=== PATIENT | male | born 1935 | race Caucasian/White ===

== ENCOUNTER 2018-08-18 19:57 | Inpatient (IN) ==
[2018-08-18] MEDS ORDERED: ACETAMINOPHEN 325 MG TABLET PO PRN (23:20)
[2018-08-18] MEDS ORDERED: ONDANSETRON 4 MG/2 ML VIAL IV PRN (23:20)
[2018-08-18] MEDS ORDERED: LEVOFLOXACIN INJ 750 MG in PREMIX 1 EACH IV SCH (23:30)
[2018-08-19] MEDS: ALBUTEROL/IPRATROPIUM 3 ML NEB RESP TX SCH ×5 (00:43→23:36)
[2018-08-19] MEDS: PIPERACILLIN/TAZOBACTAM 3,375 MG in SODIUM CHLORIDE 0.9% 100 ML IV SCH ×3 (00:50→16:05)
[2018-08-19] MEDS: SOTALOL 80 MG TABLET PO SCH ×3 (01:03→22:50)
[2018-08-19 04:25] LABS: Basophils # 0.1 10*3/uL (0.0-0.2); Basophils % 0.5 % (0.0-0.8); Eosinophils # 0.1 10*3/uL (0.0-0.87); Eosinophils % 0.5 % (0.00-10.9); Hematocrit 32.3 VOL% (42.0-52.0); Hemoglobin 9.6 GM/DL (14.0-18.0); Immature Granulocytes % 3.9 %; Immature Granulocytes Absolute 0.43 #; Lymphocytes # 2.3 10*3/uL (1.4-4.0); Lymphocytes % 20.6 % (21.2-54.2); Mean Corpuscular HGB Conc 29.7 GM/DL (32-36); Mean Corpuscular Hemoglobin 28 PG (27-34); Mean Corpuscular Volume 92.6 FL (87-102); Mean Platelet Volume 11.2 FL (9.6-12.0); Monocytes % 9.1 % (1.7-12.7); Neutrophils # 7.2 10*3/uL (1.4-7.4); Neutrophils % 65.4 % (38.7-73.9); Platelet Count 151 T/CUMM (130-400); Red Blood Count 3.49 MC/CUMM (3.8-5.5); Red Cell Distribution Width 15.1 % (9.3-17.3)
[2018-08-19 05:07] LABS: Calcium 8.5 MG/DL (8.5-10.1); Potassium 4.3 MMOL/L (3.5-5.1)
[2018-08-19] MEDS: BUDESONIDE 0.5 MG/2 ML NEB RESP TX SCH ×2 (06:53→19:01)
[2018-08-19] MEDS ORDERED: Fluticasone/Vilanterol [Breo Ellipta 100-25 Mcg Inh] INH SCH (09:00)
[2018-08-19] MEDS ORDERED: PREGABALIN 50 MG CAPSULE PO SCH (09:00)
[2018-08-19] MEDS: PANTOPRAZOLE 40 MG TABLET PO SCH (09:33)
[2018-08-19] MEDS: POTASSIUM CHLORIDE 20 MEQ TABLET PO SCH (09:33)
[2018-08-19] MEDS: PREGABALIN 100 MG CAPSULE PO SCH ×3 (09:36→22:50)
[2018-08-19] MEDS: LORazepam 0.5 MG TABLET PO SCH ×2 (09:36→22:50)
[2018-08-19] MEDS: DUTASTERIDE 0.5 MG CAPSULE PO SCH (09:36)
[2018-08-19] MEDS: FUROSEMIDE 40 MG TABLET PO SCH (09:36)
[2018-08-19] MEDS: NITROFURANTOIN MACRO/MONO 100 MG CAPSULE PO SCH ×2 (09:37→22:50)
[2018-08-19 15:57] LABS: Hematocrit 32.7 VOL% (42.0-52.0); Hemoglobin 9.8 GM/DL (14.0-18.0)
[2018-08-19] MEDS ORDERED: FUROSEMIDE 40 MG/4 ML VIAL IV ONE (22:06)
[2018-08-19] MEDS ORDERED: ALBUTEROL 2.5 MG/3 ML NEB RESP TX PRN (22:13)
[2018-08-19 22:28] LABS: Allen Test Positive
[2018-08-19 22:29] LABS: ABG Base Excess 8.9 MMOL/L (-2.5-2.5); ABG HCO3 32.7 MMOL/L (20-26); ABG Oxygen Saturation 98.2 % (95-100); ABG PCO2 50.7 MM HG (35-48); ABG PH 7.441 (7.35-7.45); ABG TCO2 31.2 MMOL/L (23-27)
[2018-08-19] MEDS: traZODone 50 MG TABLET PO SCH (22:50)
[2018-08-20] MEDS: ALBUTEROL/IPRATROPIUM 3 ML NEB RESP TX SCH ×6 (02:00→22:56)
[2018-08-20 05:38] LABS: Hematocrit 31.6 VOL% (42.0-52.0); Hemoglobin 9.6 GM/DL (14.0-18.0)
[2018-08-20] MEDS: BUDESONIDE 0.5 MG/2 ML NEB RESP TX SCH ×2 (07:27→18:59)
[2018-08-20] MEDS: POTASSIUM CHLORIDE 20 MEQ TABLET PO SCH (09:03)
[2018-08-20] MEDS: PREGABALIN 100 MG CAPSULE PO SCH ×3 (09:03→22:04)
[2018-08-20] MEDS: FUROSEMIDE 40 MG TABLET PO SCH (09:03)
[2018-08-20] MEDS: DUTASTERIDE 0.5 MG CAPSULE PO SCH (09:03)
[2018-08-20] MEDS: SOTALOL 80 MG TABLET PO SCH ×2 (09:03→22:02)
[2018-08-20] MEDS: PANTOPRAZOLE 40 MG TABLET PO SCH (09:03)
[2018-08-20] MEDS: NITROFURANTOIN MACRO/MONO 100 MG CAPSULE PO SCH ×2 (09:05→22:04)
[2018-08-20] MEDS: LORazepam 0.5 MG TABLET PO SCH ×2 (09:06→22:01)
[2018-08-20] MEDS: RIVAROXABAN 10 MG TABLET PO SCH (09:12)
[2018-08-20] MEDS: traZODone 50 MG TABLET PO SCH (22:04)
[2018-08-21] MEDS: ALBUTEROL/IPRATROPIUM 3 ML NEB RESP TX SCH ×7 (02:43→23:24)
[2018-08-21 05:41] LABS: Basophils % 0.3 % (0.0-0.8); Eosinophils # 0.1 10*3/uL (0.0-0.87); Eosinophils % 1.6 % (0.00-10.9); Hematocrit 27.5 VOL% (42.0-52.0); Hemoglobin 8.6 GM/DL (14.0-18.0); Immature Granulocytes % 3.6 %; Immature Granulocytes Absolute 0.32 #; Lymphocytes # 1.5 10*3/uL (1.4-4.0); Lymphocytes % 16.6 % (21.2-54.2); Mean Corpuscular HGB Conc 31.3 GM/DL (32-36); Mean Corpuscular Hemoglobin 29 PG (27-34); Mean Corpuscular Volume 91.1 FL (87-102); Monocytes % 10.8 % (1.7-12.7); NRBC # 0.02 10*3/uL; Neutrophils % 67.1 % (38.7-73.9); Platelet Count 139 T/CUMM (130-400); Red Blood Count 3.02 MC/CUMM (3.8-5.5); Red Cell Distribution Width 15.3 % (9.3-17.3); White Blood Count 8.9 T/CUMM (4-12)
[2018-08-21 05:47] LABS: Calcium 8.4 MG/DL (8.5-10.1); Osmolality,Calculated 284.5 MOS/KG (273-304); Potassium 3.8 MMOL/L (3.5-5.1)
[2018-08-21 06:06] LABS: Hypochromasia 2+
[2018-08-21 06:07] LABS: Ovalocytes Slight; Platelet Estimate Normal
[2018-08-21] MEDS: BUDESONIDE 0.5 MG/2 ML NEB RESP TX SCH ×2 (06:50→21:07)
[2018-08-21] MEDS: LORazepam 0.5 MG TABLET PO SCH ×2 (09:21→20:44)
[2018-08-21] MEDS: POTASSIUM CHLORIDE 20 MEQ TABLET PO SCH (09:22)
[2018-08-21] MEDS: FUROSEMIDE 40 MG TABLET PO SCH (09:23)
[2018-08-21] MEDS: RIVAROXABAN 10 MG TABLET PO SCH (09:23)
[2018-08-21] MEDS: PREGABALIN 100 MG CAPSULE PO SCH ×3 (09:24→20:44)
[2018-08-21] MEDS: PANTOPRAZOLE 40 MG TABLET PO SCH (09:24)
[2018-08-21] MEDS: NITROFURANTOIN MACRO/MONO 100 MG CAPSULE PO SCH ×2 (09:24→20:48)
[2018-08-21] MEDS: SOTALOL 80 MG TABLET PO SCH ×2 (09:24→20:44)
[2018-08-21] MEDS: DUTASTERIDE 0.5 MG CAPSULE PO SCH (09:24)
[2018-08-21] MEDS: PIPERACILLIN/TAZOBACTAM 3,375 MG in SODIUM CHLORIDE 0.9% 100 ML IV SCH ×2 (14:57→21:30)
[2018-08-21] MEDS: traZODone 50 MG TABLET PO SCH (20:44)
[2018-08-22] MEDS: ALBUTEROL/IPRATROPIUM 3 ML NEB RESP TX SCH ×3 (03:15→10:54)
[2018-08-22 04:55] LABS: Basophils % 0.3 % (0.0-0.8); Eosinophils # 0.1 10*3/uL (0.0-0.87); Eosinophils % 1.6 % (0.00-10.9); Hematocrit 28.2 VOL% (42.0-52.0); Hemoglobin 8.6 GM/DL (14.0-18.0); Immature Granulocytes Absolute 0.28 #; Lymphocytes # 1.5 10*3/uL (1.4-4.0); Mean Corpuscular HGB Conc 30.5 GM/DL (32-36); Mean Corpuscular Hemoglobin 28 PG (27-34); Mean Corpuscular Volume 93.1 FL (87-102); Mean Platelet Volume 11.4 FL (9.6-12.0); Monocytes # 0.9 10*3/uL (0.11-0.8); Monocytes % 12.4 % (1.7-12.7); Neutrophils # 4.2 10*3/uL (1.4-7.4); Neutrophils % 60.7 % (38.7-73.9); Platelet Count 148 T/CUMM (130-400); Red Blood Count 3.03 MC/CUMM (3.8-5.5); Red Cell Distribution Width 15.2 % (9.3-17.3); White Blood Count 6.9 T/CUMM (4-12)
[2018-08-22 04:56] LABS: Calcium 8.3 MG/DL (8.5-10.1); Osmolality,Calculated 288.3 MOS/KG (273-304); Potassium 3.7 MMOL/L (3.5-5.1)
[2018-08-22] MEDS: PIPERACILLIN/TAZOBACTAM 3,375 MG in SODIUM CHLORIDE 0.9% 100 ML IV SCH (05:31)
[2018-08-22] MEDS: BUDESONIDE 0.5 MG/2 ML NEB RESP TX SCH (07:00)
[2018-08-22] MEDS: SOTALOL 80 MG TABLET PO SCH (09:36)
[2018-08-22] MEDS: NITROFURANTOIN MACRO/MONO 100 MG CAPSULE PO SCH (09:37)
[2018-08-22] MEDS: LORazepam 0.5 MG TABLET PO SCH (09:37)
[2018-08-22] MEDS: POTASSIUM CHLORIDE 20 MEQ TABLET PO SCH (09:38)
[2018-08-22] MEDS: DUTASTERIDE 0.5 MG CAPSULE PO SCH (09:38)
[2018-08-22] MEDS: PREGABALIN 100 MG CAPSULE PO SCH (09:40)
[2018-08-22] MEDS: PANTOPRAZOLE 40 MG TABLET PO SCH (09:40)
[2018-08-22] MEDS: RIVAROXABAN 10 MG TABLET PO SCH (09:41)
[2018-08-22 12:16] VITALS: BP 108/61
[2018-08-24] MEDS ORDERED: ERGOCALCIFEROL 50,000 UNIT CAPSULE PO SCH (09:00)
== END 2018-08-22 14:40 | DRG 604 ==
LOC: SUATTDRO 20:58 → N.TELES 20:58
PROVIDERS: ADMIT Internal Medicine; ATTEND Internal Medicine